=== PATIENT | female | born 1990 | race Caucasian/White ===

== ENCOUNTER 2024-02-12 13:58 | Emergency (ER) | payer MEDICAID ==
[~2024-02-12] VITALS: Ht 162.6 cm; Wt 54.9 kg
[2024-02-12 14:40] VITALS: BP 129/86; PULSE 89; RESP 16; TEMP 98.6; O2SAT 97
[2024-02-12] MEDS ORDERED: NAPR-746 PO (15:48)
== END 2024-02-12 15:55 | disposition home or self-care (01) ==
LOC: ER 13:58
DX: S90.31XA Contusion of right foot, initial encounter (principal); Z88.1 Allergy status to other antibiotic agents; W22.8XXA Striking against or struck by other objects, initial encounter; Y93.89 Activity, other specified; Y92.89 Other specified places as the place of occurrence of the external cause; Y99.8 Other external cause status
CPT/HCPCS: 73630